=== PATIENT | male | born 1990 | race Caucasian/White ===

== ENCOUNTER 2019-12-24 01:35 | Emergency (ER) | payer OTHER, SELFPAY ==
[~2019-12-24] VITALS: Ht 185.4 cm; Wt 94.0 kg
[2019-12-24 01:36] VITALS: BP 127/90
[2019-12-24] MEDS ORDERED: AMOXICILLIN 500 MG CAPSULE PO STA (01:46)
[2019-12-24] MEDS ORDERED: AMOXICILLIN 500 MG CAPSULE ONE (01:52)
[2019-12-24] MEDS ORDERED: ACETAMINOPHEN 500 MG TABLET ONE (01:53)
[2019-12-24] MEDS ORDERED: ACETAMINOPHEN 500 MG TABLET PO ONE (02:00)
== END 2019-12-24 02:02 | disposition home or self-care (01) ==
LOC: ED 01:45
DX: K08.89 Other specified disorders of teeth and supporting structures (principal)
CPT/HCPCS: 99283